=== PATIENT | female | born 1995 | race Caucasian/White ===

== ENCOUNTER 2019-04-30 11:32 | Inpatient (IN) ==
--- NOTE | 2019-04-30 12:13 | Diag Imaging Result Doc PS360 ---
EXAM: CHEST-1 VIEW 04/30/2019 HISTORY: sepsis prot TECHNIQUE: PA chest COMMENT: There are no previous studies. There is no evidence of acute pulmonary disease. The heart size and primary vascularity are within normal limits. IMPRESSION: No acute disease. Electronically signed by Jarod Giang 04/30/2019 12:10 PM
[2019-04-30 12:25] LABS: BILIRUBIN URINE NEGATIVE (NEGATIVE); BLOOD URINE 3+ (NEGATIVE); CLARITY VERY CLOUDY (CLEAR); COLOR YELLOW; GLUCOSE URINE NEGATIVE (NEGATIVE); KETONE URINE 3+(Large) mg/dL (NEGATIVE); LEUKOCYTES URINE 2+ (NEGATIVE); NITRITE URINE POSITIVE (NEGATIVE); PH URINE 6.5; PROTEIN URINE 2+(100 mg/dL) mg/dL (NEGATIVE); SP GRAVITY URINE 1.015; UROBILINOGEN URINE 1 mg/dL
[2019-04-30] MEDS ORDERED: NS 1,000 ML IV ONE ×2 (12:27→15:43)
[2019-04-30 12:36] LABS: INR 1.17; PROTIME 15.5 Seconds (11.0-16.0)
[2019-04-30 12:37] LABS: PTT 33.7 Seconds (22.3-41.8)
[2019-04-30 12:40] LABS: AGAP 15; ALBUMIN 4.7 g/dL (3.5-5.0); ALKALINE PHOSPHATASE 85 U/L (32-104); BUN 7 mg/dL (8-22); CALCIUM 9.6 mg/dL (8.8-10.2); CHLORIDE 103 mmol/L (98-107); CK PROFILE 41 U/L (24-173); COSMO 276; CREATININE 0.8 mg/dL (0.5-0.9); ESTIMATED GFR > 60; GLUCOSE 115 mg/dL (70-104); GOT 14 U/L (10-30); GPT 14 U/L (10-36); POTASSIUM 3.8 mmol/L (3.5-5.1); SODIUM 139 mmol/L (136-145); TCO2 22 mmol/L (25-35); TOTAL PROTEIN 8.2 g/dL (6.3-8.3)
[2019-04-30 12:45] LABS: BASO# 0.06 X1000 (0.0-0.2); BASO% 0.2 % (0.0-0.8); HEMATOCRIT 41.6 % (37.0-47.0); HEMOGLOBIN 13.8 g/dL (12.0-16.0); IMM GRAN# 0.16 X1000 (0.0-0.04); IMM GRAN% 0.4 % (0.0-0.5); LYMPH% 2.2 % (20.5-51.1); MCH 30.7 PG (27-31); MCHC 33.2 g/dL (33-37); MCV 92.4 FL (81-99); MONO# 3.18 X1000 (0.11-0.59); MONO% 8.9 % (1.7-9.3); MPV 11.3 FL (7.4-10.4); NEUT# 31.56 X1000 (1.4-6.5); NEUT% 88.3 % (42.2-75.2); PLT 361 X1000 (130-400); RDW 12.6 % (11.5-14.5); WBC 35.76 X1000 (4.8-10.8)
[2019-04-30 12:49] LABS: URINE BACTERIA 3+ /HFP; URINE EPITHELIAL CELLS <10 /HPF (<10); URINE RBC 20-40 /HPF (<10); URINE SOURCE CLEAN CATCH; URINE WBC TNTC /HPF (<10)
[2019-04-30] MEDS ORDERED: LEVAQUIN 500 MG/D5W 500 MG/100 ML IVPB IV ONE (12:58)
[2019-04-30 13:11] LABS: BE -2.9 mmoll (-3.0-3.0); BLOOD TYPE ARTERIAL; HCO3-(ACT) 22.6 mmoll (20.0-26.0); METHB 1.6 % (0.0-1.5); O2(CT) 16.8 mL/dL (15.0-23.0); PCO2(98.6) 32 mmHg (35-45); PO2(98.6) 91 mmHg (60-100); SAMPLE BLOOD; SAO2 98.7 % (95.0-100.0); THB 12.5 g/dL (11.5-17.4); pH(98.6) 7.42 (7.35-7.45)
[2019-04-30 13:12] LABS: ALLEN TEST NO; MODALITY ROOM AIR
[2019-04-30 13:43] LABS: ANISOCYTOSIS 1+; LYMPHS 3 % (21-51); MONO 9 % (1-9); SEGS 88 % (42-75)
[2019-04-30] MEDS ORDERED: TYLENOL PO ONE (14:33)
--- NOTE | 2019-04-30 15:16 | Diag Imaging Result Doc PS360 ---
EXAM: US RENAL 2 (RETROPER) COMPLETE 04/30/2019 HISTORY: fever TECHNIQUE: Renal ultrasound COMMENT: There is mild caliectasis on the right with a 12 mm sized stone in one of the mid pole calyces. There is also some caliectasis on the left side with an 8 mm stone in the mid collecting system. The urinary bladder is unremarkable. The right kidney is 12.3 x 6.4 x 5.6 cm the left is 11.4 x 5.2 x 6.2 cm. IMPRESSION: Minimal bilateral hydronephrosis and nephrolithiasis. Electronically signed by Jarod Giang 04/30/2019 3:14 PM
[2019-04-30] MEDS ORDERED: TYLENOL PO PRN (15:43)
[2019-04-30] MEDS ORDERED: NS 1,000 ML IV SCH (15:43)
[2019-04-30] MEDS ORDERED: ZOFRAN IV PRN (15:43)
[2019-04-30] MEDS ORDERED: VANCOMYCIN IV PER PHARMACY MISC SCH (16:00)
[2019-04-30] MEDS ORDERED: ZOSYN 3.375 GM in NS 50 ML IV SCH (16:00)
--- NOTE | 2019-04-30 16:36 | PROVIDER DOCUMENTATION ---
This chart was entered by Jamaal Howard Scribe, acting as scribe for Nito Rubalcava MD. HPI-General Adult - General Chief Complaint: Abnormal Lab[s] Stated Complaint: ABD LABS Time Seen by Provider: 04/30/19 12:03 Source: patient Allergies/Adverse Reactions: Patient Allergies Allergy/AdvReac Type Severity Reaction Status Date / Time No Known Allergies Allergy Verified 04/30/19 12:27 Home Medications: Home Medication List Medication Instructions Recorded Confirmed Last Taken Type NK [No Home Medications] 04/30/19 04/30/19 Unknown History - History of Present Illness -Gen Adult Nature of Presenting Problems: 23 y/o F presents to the ED c/o abdominal cramps, low back pain, nausea and vomiting since . Patient reports that she did have a fever last night. Patient reports going to an outpatient clinic this morning and had a WBC of 31k and was told she a UTI. Location of Pain/Injury: reports: abdomen Quality of Pain: reports: cramping Severity: reports: mild Timing: reports: still present Context/Activities at Onset: reports: none Modifying Factors: improves with: nothing Associated Symptoms: reports: fatigue, nausea, vomiting Similar Symptoms Previously?: No Recently seen or treated by another doctor?: Yes Review of Systems - Adult - REVIEW OF SYSTEMS - ADULT Constitutional: reports: chills, fever Eyes: reports: no symptoms reported Ears, Nose, Mouth & Throat: reports: no symptoms reported Cardiovascular: reports: no symptoms reported Respiratory: denies: shortness of breath, wheezing Gastrointestinal: reports: abdominal pain, nausea, vomiting Genitourinary: denies: dysuria, discharge, frequency, flank pain, hematuria Musculoskeletal: reports: back pain Integumentary: denies: rash Neurological: denies: dizziness/vertigo, headache/migraines Psychiatric: reports: no symptoms reported Endocrine: reports: no symptoms reported Hematologic/Lymphatic: reports: no symptoms reported Allergic/Immunologic: reports: no symptoms reported All Other Systems: Reviewed and Negative Past History - Adult - PAST MEDICAL HISTORY-ADULT Review of Records: reports: Nursing Assessment Review, Medications Reviewed Major Childhood Illnesses: reports: denies history Cardiovascular: reports: denies history Respiratory: reports: denies history Gastrointestinal: reports: denies history Obstetrical/Gynecological: reports: denies history Genitourinary: reports: denies history Musculoskeletal: reports: denies history Neurological: reports: denies history Endocrine/Immune: reports: denies history Other Conditions: reports: denies history - PRIOR SURGERIES/PROCEDURES Surgical/Procedure History: reports: reviewed, not pertinent - IMMUNIZATION STATUS Childhood Immunizations: See Nurse Assessment Flu Vaccine: See Nurse Assessment - SOCIAL HISTORY Smoking: denies Substance Use: none/never Physical Exam-General - PHYSICAL EXAM-ADULT Initial Vital Signs Reviewed: Yes - CONSTITUTIONAL General Appearance: alert, no apparent distress - NECK Neck: full range of motion, normal inspection - RESPIRATORY Respiratory: lungs clear, normal breath sounds, no respiratory distress, no accessory muscle use - CARDIOVASCULAR Cardiovascular: normal peripheral pulses, regular rate, rhythm - GASTROINTESTINAL (ABDOMEN) Abdominal Exam: normal bowel sounds, non tender, soft - SKIN Integumentary: normal color, warm/dry - PSYCHIATRIC Psych/Mental Status: normal mood/affect, oriented x 3 Progress - PLAN OF CARE/RESULTS Progress/Plan/Lab Results: Vital Signs - 8 hr 04/30/19 11:34 Temperature 98.9 F Pulse Rate 112 H Respiratory Rate 18 Blood Pressure 119/72 O2 Sat by Pulse Oximetry 96 Bedside Urine ED: Urine Bedside Start: 04/30/19 11:44 Freq: ORDERED Status: Active Protocol: Activity Type Activity Date Activity User E-Sign Co-Sign Detail Recorded Client Recorded Date Recorded By Document 04/30/19 11:48 [id number] 04/30/19 11:48 [id number] 04/30/19 11:48 Point of Care [Bedside Point of Care] -Lot # [id number] - Results Negative -Control Line Visible? Yes -Additional Comment sb Laboratory Results - last 24 hr 04/30/19 04/30/19 04/30/19 11:45 11:45 11:45 WBC 35.76 H RBC 4.50 Hgb 13.8 Hct 41.6 MCV 92.4 MCH 30.7 MCHC 33.2 RDW Std Deviation 12.6 Plt Count 361 MPV 11.3 H Immature Gran % (Auto) 0.4 Neut % (Auto) 88.3 H Lymph % (Auto) 2.2 L [place] % (Auto) 8.9 Eos % (Auto) 0.0 Baso % (Auto) 0.2 Immature Gran # (Auto) 0.16 H Neut # (Auto) 31.56 H Lymph # (Auto) 0.80 L [place] # (Auto) 3.18 H Eos # (Auto) 0.00 Baso # (Auto) 0.06 PT INR PTT (Actin FS) Sodium 139 Potassium 3.8 Chloride 103 Carbon Dioxide 22 L Anion Gap 15 BUN 7 L Creatinine 0.8 Estimated GFR/1.73 m2 > 60 BUN/Creatinine Ratio 9 Glucose 115 H Calculated Osmolality 276 Calcium 9.6 Total Bilirubin 0.90 AST 14 ALT 14 Alkaline Phosphatase 85 Creatine Kinase 41 Troponin T Total Protein 8.2 Albumin 4.7 Globulin 4.0 Albumin/Globulin Ratio 1.0 Urine Source CLEAN CATCH Urine Color YELLOW Urine Clarity VERY CLOUDY A Urine pH 6.5 Ur Specific [place] 1.015 Urine Protein 2+(100 mg/dL) A Urine Ketones 3+(Large) A Urine Blood 3+ A Urine Nitrite POSITIVE A Urine Bilirubin NEGATIVE Urine Urobilinogen 1 Urine Microscopic RBC 20-40 A Urine WBC 2+ A Urine Microscopic WBC TNTC A Ur Epithelial Cells <10 Urine Bacteria 3+ Urine Glucose NEGATIVE 04/30/19 04/30/19 11:45 11:45 WBC RBC Hgb Hct MCV MCH MCHC RDW Std Deviation Plt Count MPV Immature Gran % (Auto) Neut % (Auto) Lymph % (Auto) [place] % (Auto) Eos % (Auto) Baso % (Auto) Immature Gran # (Auto) Neut # (Auto) Lymph # (Auto) [place] # (Auto) Eos # (Auto) Baso # (Auto) PT 15.5 INR 1.17 PTT (Actin FS) 33.7 Sodium Potassium Chloride Carbon Dioxide Anion Gap BUN Creatinine Estimated GFR/1.73 m2 BUN/Creatinine Ratio Glucose Calculated Osmolality Calcium Total Bilirubin AST ALT Alkaline Phosphatase Creatine Kinase Troponin T < 0.010 Total Protein Albumin Globulin Albumin/Globulin Ratio Urine Source Urine Color Urine Clarity Urine pH Ur Specific [place] Urine Protein Urine Ketones Urine Blood Urine Nitrite Urine Bilirubin Urine Urobilinogen Urine Microscopic RBC Urine WBC Urine Microscopic WBC Ur Epithelial Cells Urine Bacteria Urine Glucose Orders Category Date Time Status Cardiac Monitoring DIRECTED Care 04/30/19 11:42 Active ED: Urine Bedside ORDERED Care 04/30/19 11:44 Active IV Insertion ORDERED Care 04/30/19 11:42 Completed Notify MD of + Sepsis Screen NOW Care 04/30/19 11:42 Active Notify Physician As Ordered Care 04/30/19 11:42 Active CHEST-1 VIEW [RAD] Stat Exams 04/30/19 11:42 Completed ABG [RESP] Routine Lab 04/30/19 11:43 Ordered BLOOD CULTURE [BLDCUL] Stat Lab 04/30/19 12:32 Ordered CBC WITH DIFF [HEME] Stat Lab 04/30/19 11:45 Results CK PROFILE [SP CHEM] Stat Lab 04/30/19 11:45 Completed COMPREHENSIVE METABOLIC PANEL [CHEM] Stat Lab 04/30/19 11:45 Completed LACTATE, PLASMA [CHEM] Lab 04/30/19 12:26 Ordered LACTATE, PLASMA [CHEM] Lab 04/30/19 14:45 Uncollected LACTATE, PLASMA [CHEM] Lab 04/30/19 17:45 Uncollected PROTIME WITH INR [COAG] Stat Lab 04/30/19 11:45 Completed PTT [COAG] Stat Lab 04/30/19 11:45 Completed TROPONIN T Stat Lab 04/30/19 11:[address] W/POSS RFLX CULT [URINALYSIS] Stat Lab 04/30/19 11:45 Completed URINE CULTURE [RM] Routine Lab 04/30/19 12:49 Ordered 0.9% Sodium Chloride Inj [Ns] 1,000 ml Med 04/30/19 12:27 Active IV 999 mls/hr Oxygen Device Stat Oth 04/30/19 11:42 Active Result Diagrams: 04/30/19 11:45 04/30/19 11:45 - XRAY 1 XRAY Study: Chest Impression: See EMR Report (EXAM: CHEST-1 VIEW 04/30/2019 HISTORY: sepsis prot TECHNIQUE: PA chest COMMENT: There are no previous studies. There is no evidence of acute pulmonary disease. The heart size and primary vascularity are within normal limits. IMPRESSION: No acute disease. Electronically signed by Jarod Giang 04/30/2019 12:10 PM 04/30/19 1210 Interpreting Physician: Jarod Giang MD Dictated Date/Time: 04/30/19 1209 cc: Nito Rubalcava MD; None,PCP) - ULTRASOUND (By Radiology) 1 US Study: Renal Impression: See EMR Report (EXAM: US RENAL 2 (RETROPER) COMPLETE 04/30/2019 HISTORY: fever TECHNIQUE: Renal ultrasound COMMENT: There is mild caliectasis on the right with a 12 mm sized stone in one of the mid pole calyces. There is also some caliectasis on the left side with an 8 mm stone in the mid collecting system. The urinary bladder is unremarkable. The right kidney is 12.3 x 6.4 x 5.6 cm the left is 11.4 x 5.2 x 6.2 cm. IMPRESSION: Minimal bilateral hydronephrosis and nephrolithiasis. Electronically signed by Jarod Giang 04/30/2019 3:14 PM 04/30/19 1514 Interpreting Physician: Jarod Giang MD Dictated Date/Time: 04/30/19 1512 cc: Nito Rubalcava MD; None,PCP) - CONSULTS/PCP/HOSPITALIST Notification #1 *Consult/PCP/Hospitalist*: Dr Cueva Time Discussed: 15:25 Consult Disposition: Admit Departure - Departure Date of Disposition Decision: 04/30/19 Time of Disposition Decision: 15:34 DIAGNOSIS: Pyelonephritis Disposition: ADMITTED INPATIENT 09 Certified Medical Emergency: Emergent Condition: Stable - Critical Care Note This patient required my direct & personal management of CC.: No Attestation - Physician/ ZIGGY Attestation Patient care was provided by Advanced Practice Provider:: No The physician spent face to face time with patient:: Yes Advanced Practice Provider documentation review:: Supervising physician onsite and consulted in the evaluation and care of this patient. The physician did have a face to face encounter with the patient. This chart was documented by the indicated scribe, (Jamaal Howard Scribe) and accurately reflects the services I performed and decisions made by me, Nito Rubalcava MD, as attested by the provider's signature.
--- NOTE | 2019-04-30 16:55 | HISTORY AND PHYSICAL ---
CHIEF COMPLAINT: Abnormal labs, bilateral flank pain. PRIMARY CARE PROVIDER: None. HISTORY OF PRESENT ILLNESS: Ms. Castorena is a 23-year-old female who carries no past medical history. She stated a couple of days ago she started having bilateral flank pain, episode of vomitus. Went to [facility] this morning and was sent to the ER because of a 31 white count and a urinalysis that was positive for nitrites. Workup in the ED revealed a white count of 35 with negative lactate. Essentially unremarkable CMP. Urinalysis showed too numerous to count WBCs, 2+ WBCs, positive nitrates, 3+ blood. Renal ultrasound was done. That showed minimal bilateral hydronephrosis and nephrolysis with mild caliectasis on the right with a 12 mm size stone in 1 of the midpole calyces, as well as caliectasis on the left side with an 8 mm stone in the mid collecting system. She was initiated on IV Levaquin. She spiked a fever up to 102. We are going to transfer her over to [facility] for a Urology consult and broaden the spectrum of her antibiotics to vancomycin and Zosyn and continue with another fluid bolus with IV fluids at a set rate. Blood pressures have remained stable. She has not been hypotensive. PAST MEDICAL HISTORY: None. PAST SURGICAL HISTORY: None. FAMILY HISTORY: Noncontributory. SOCIAL HISTORY: Occasional alcohol. No tobacco or illicit drug use. HOME MEDICATIONS: None. ALLERGIES: No known drug allergies. PHYSICAL EXAMINATION: VITAL SIGNS: Temperature is 102.1 degrees, heart rate 112, respirations 14, blood pressure 117/64, O2 is 100% on room air. GENERAL: Ms. Catsorena is a pleasant, 23-year-old female who is nontoxic in appearance, sitting up in the stretcher, drinking soda from [employer], in no acute distress. HEENT: Atraumatic, normocephalic. PERRL. NECK: Supple. Trachea midline. CV: S1, S1 appreciated. No murmurs, gallops, rubs noted. RESPIRATORY: Lung sound clear bilaterally. GI: Soft, nontender, nondistended. Positive bowel sounds 4 quadrants. She does have bilateral CVA tenderness. EXTREMITIES: Lower extremity are negative for edema. NEUROLOGIC: No focal deficits noted. DIAGNOSTIC DATA: Per HPI. LABORATORY DATA: White count 35, hemoglobin and hematocrit 13 and 41, platelet count is 361,000. Sodium 139, potassium 3.8, BUN 7, creatinine 0.8, blood glucose is 115. Urinalysis: Too numerous to count WBCs, 2+ WBCs, 20-40 RBC, positive for blood, positive for nitrites, 3+ bacteria. ASSESSMENT AND PLAN: 1. Bilateral hydronephrosis with nephrolithiasis with renal stone. We will broaden the spectrum of her antibiotics to vancomycin and Zosyn. Continue with IV fluids, do another fluid bolus. Continue with Tylenol p.r.n. She has had 2 negative lactates. 2. Fever secondary to #1. 3. Leukocytosis secondary to #1. 4. Further recommendation to follow physician evaluation, laboratory and diagnostic data. Dictated by JUAN Hyde for Onesimo Cueva MD cc: MD Dr. Kacie Vargas
[2019-04-30] MEDS ORDERED: VANCOMYCIN 1,500 MG in NS 250 ML IV ONE (17:00)
[2019-04-30] MEDS: NS 1,000 ML IV SCH (17:30)
[2019-04-30] MEDS ORDERED: VANCOMYCIN 2,000 MG in NS 500 ML IV SCH (18:00)
--- NOTE | 2019-04-30 19:50 | HISTORY AND PHYSICAL ---
ADDENDUM: Patient seen and examined by myself. Full note dictated and discussed with nurse practitioner. Patient presented to the hospital. After having gone to a walk-in clinic, she was told that her white count was 31,000. She notes that she has had some fever and has not felt good. She is actually awake, alert. She is relatively not ill appearing, very pleasant. Her white count is, in fact, 31 to 33. She has a urinary tract infection. Most likely pyelonephritis. She also has kidney stones. We are going to transfer her to [facility], place her on antibiotics, and ask Urology to evaluate. cc: Onesimo Cueva MD
[2019-04-30] MEDS ORDERED: ZOSYN ONE (22:18)
[2019-04-30] MEDS: TYLENOL PO PRN (22:22)
[2019-04-30] MEDS: ZOSYN 3.375 GM in NS 50 ML IV SCH (22:23)
[2019-05-01] MEDS: ZOSYN 3.375 GM in NS 50 ML IV SCH ×4 (06:16→21:51)
[2019-05-01 07:43] LABS: BASO# 0.04 X1000 (0.0-0.2); BASO% 0.2 % (0.0-0.8); HEMATOCRIT 33.3 % (37.0-47.0); HEMOGLOBIN 10.8 g/dL (12.0-16.0); IMM GRAN# 0.07 X1000 (0.0-0.04); IMM GRAN% 0.3 % (0.0-0.5); LYMPH# 0.92 X1000 (1.2-3.4); LYMPH% 4.4 % (20.5-51.1); MCH 30.5 PG (27-31); MCHC 32.4 g/dL (33-37); MCV 94.1 FL (81-99); MONO# 1.91 X1000 (0.11-0.59); MONO% 9.1 % (1.7-9.3); MPV 11.5 FL (7.4-10.4); NEUT# 18.04 X1000 (1.4-6.5); PLT 276 X1000 (130-400); RBC 3.54 XMIL (4.2-5.4); RDW 12.9 % (11.5-14.5); WBC 20.98 X1000 (4.8-10.8)
[2019-05-01 07:52] LABS: AGAP 14; BUN 4 mg/dL (8-22); CALCIUM 7.7 mg/dL (8.8-10.2); CHLORIDE 105 mmol/L (98-107); COSMO 268; CREATININE 0.8 mg/dL (0.5-0.9); ESTIMATED GFR > 60; GLUCOSE 80 mg/dL (70-104); POTASSIUM 3.3 mmol/L (3.5-5.1); SODIUM 136 mmol/L (136-145); TCO2 17 mmol/L (25-35)
--- NOTE | 2019-05-01 07:57 | CONSULTATION ---
DATE OF CONSULTATION: 05/01/2019 CHIEF COMPLAINT: Bilateral flank pain HISTORY OF PRESENT ILLNESS: Ms. Castorena is a 23-year-old female who presented to [facility] complaining of a 2-day history of bilateral flank pain, fevers, and nausea and vomiting. The patient had gone to [facility] earlier yesterday morning and was sent to emergency room [place] [id number]. Her urinalysis was positive for nitrites, blood, leukocytes, and concern for infection. Repeat labs were performed which showed white blood cell count of 35,000 with a normal lactate with creatinine 0.8. An ultrasound was obtained which showed bilateral caliectasis with no obvious hydronephrosis. Stones were seen in both kidneys. A 12 mm stone present in the right kidney and a 8 mm stone present in the left kidney. She was given Levaquin as well as started on Zosyn and vancomycin. The patient had a temperature up to 102 in the emergency room, but has been afebrile since then. She denies any fevers overnight. Her vital signs appeared to be relatively normal. She has been without nausea or vomiting. She denies any history of kidney stones. Denies history of recurrent urinary tract infections. The patient lives in [place] and is here visiting her boyfriend. PAST MEDICAL HISTORY: None. PAST SURGICAL HISTORY: None. FAMILY HISTORY: He denies history of kidney stones. SOCIAL HISTORY: Occasional alcohol. Denies tobacco or illicit drug use. HOME MEDICATIONS: No home medications. ALLERGIES: No drug allergies. PHYSICAL EXAMINATION: Vital Signs: Temperature 98.2, heart rate 96, blood pressure 115/66, saturation 95% on room air. General: No acute distress. Resting comfortably in bed. Alert and oriented x3. Respiratory: Good respiratory effort without audible wheezing or rales. HEENT: Normocephalic, atraumatic. Pupils equal, round, reactive to light. NECK: Trachea midline with masses or asymmetry. Cardiovascular: Low-grade tachycardia. Abdomen: Soft, nontender, nondistended. : No suprapubic tenderness. Mild CVA tenderness bilaterally. Neurologic: Gross motor and sensory intact. Musculoskeletal: Moving all extremities. SKIN: No obvious skin rashes or lesions. LABS: White blood cell count 35.8 yesterday, hemoglobin 13.8, hematocrit 41.6, platelets 361,000. Sodium 139, potassium 3.8, chloride 103, bicarb 22, BUN 7, creatinine 0.8, glucose 115. Urinalysis 3+ protein, positive nitrites, 2+ white blood cells, 3+ bacteria. IMAGING: Renal ultrasound images reviewed which showed bilateral nonobstructing stones. The patient has a 12 mm stone present in the right kidney, as well as 8 mm stone present in the left inter pole. No obvious hydronephrosis is seen. Small amount of pelviectasis is visualized. ASSESSMENT AND PLAN: Ms. Castorena is a 23-year-old who presented to the emergency room yesterday complaining of fevers, nausea and vomiting, with associated back pain. White blood cell count was elevated at 35.8 with a renal ultrasound showing no evidence of hydronephrosis and bilateral nonobstructing stones. The patient was admitted for pyelonephritis. Seems the patient likely has this with nitrite positive urine. She denies any voiding complaints currently. Morning labs have not returned yet. We will continue to monitor. If a.m. labs show improvement in white blood cell count I would continue on IV antibiotics. If the patient has worsening renal function or white blood cell count, may have to consider cross-sectional imaging. We will plan to obtain a KUB later today to assess for stones. The patient's ultrasound did show likely bilateral nonobstructing stones. The patient has not had stones previously. She has not had recurrent infections. I would keep her on broad-spectrum antibiotics and tailor the culture to culture specific treatment of her infection. If has positive blood cultures, may have to discuss with Infectious disease regarding length of therapy. The patient lives in [place] and likely will go back there for further treatment of her stones. We will continue to monitor from a urologic standpoint. Please call with questions or concerns. cc: MD REMEDIOS Sandy
[2019-05-01] MEDS: TYLENOL PO PRN ×3 (08:44→19:50)
[2019-05-01] MEDS: NS 1,000 ML IV SCH ×2 (10:03→10:05)
[2019-05-01] MEDS ORDERED: VANCOMYCIN 1,250 MG in NS 250 ML IV SCH (11:00)
--- NOTE | 2019-05-01 12:22 | Diag Imaging Result Doc PS360 ---
EXAM: KUB ABDOMEN HISTORY: Evaluation for kidney stones TECHNIQUE: Single view COMPARISON: None. FINDINGS: There is stool throughout the colon. No bowel obstruction. No organomegaly. No foreign body. No abnormal abdominal calcifications in the left abdomen. Questionable small calcifications overlying the right kidney. IMPRESSION: Mild constipation. Questionable small right renal stones Electronically signed by Phong Melgar 05/01/2019 12:20 PM
[2019-05-01] MEDS ORDERED: LEVAQUIN 750 MG/D5W 750 MG/150 ML IVPB IV SCH (15:30)
--- NOTE | 2019-05-01 19:34 | PROGRESS NOTE ---
DATE: 05/01/2019 SUBJECTIVE: Patient has no major complaints. OBJECTIVE: Blood pressure is 102/67, heart rate 98, respiratory rate 17, temperature 102.1 degrees, but not she has not had another fever recorded. ASSESSMENT: On micro, she has 2 positive blood cultures for gram-negative rods, and 1 positive urine culture for gram-negative lurdes, presumptively negative bacteremia. She is on Zosyn and seems to be doing okay. Dr. Martin would offer cystoscopy, but she does not want it. She told me that she did not have recurrent infections, but she does, so it will be very important to get her studies. She does have some constipation and there are some small right renal stones, but there is no obstruction, and there is nothing in the bladder. DISPOSITION: I think if she is stable, afebrile, and we have sensitivities, she could go home, but probably do need to make sure she is no longer bacteremic. Will repeat her blood cultures tomorrow. That will be 72 hours potentially on the right if it is susceptible. cc: Kris Christina MD
[2019-05-01] MEDS: COLACE PO SCH (19:50)
[2019-05-02] MEDS ORDERED: MOTRIN PO ONE (00:47)
[2019-05-02] MEDS: NS 1,000 ML IV SCH ×4 (01:01→18:51)
[2019-05-02] MEDS: COLACE PO SCH ×3 (01:43→21:52)
[2019-05-02] MEDS: ZOSYN 3.375 GM in NS 50 ML IV SCH ×4 (06:01→21:52)
[2019-05-02 06:37] LABS: BASO# 0.04 X1000 (0.0-0.2); BASO% 0.4 % (0.0-0.8); HEMOGLOBIN 10.2 g/dL (12.0-16.0); IMM GRAN# 0.08 X1000 (0.0-0.04); IMM GRAN% 0.7 % (0.0-0.5); LYMPH# 1.04 X1000 (1.2-3.4); LYMPH% 9.2 % (20.5-51.1); MCH 30.4 PG (27-31); MCHC 32.9 g/dL (33-37); MCV 92.5 FL (81-99); MONO# 0.84 X1000 (0.11-0.59); MONO% 7.5 % (1.7-9.3); NEUT# 9.26 X1000 (1.4-6.5); NEUT% 82.2 % (42.2-75.2); PLT 285 X1000 (130-400); RBC 3.35 XMIL (4.2-5.4); RDW 12.7 % (11.5-14.5); WBC 11.26 X1000 (4.8-10.8)
[2019-05-02 07:14] LABS: AGAP 13; BUN 4 mg/dL (8-22); CALCIUM 7.5 mg/dL (8.8-10.2); CHLORIDE 110 mmol/L (98-107); COSMO 275; CREATININE 0.7 mg/dL (0.5-0.9); ESTIMATED GFR > 60; GLUCOSE 72 mg/dL (70-104); POTASSIUM 3.1 mmol/L (3.5-5.1); SODIUM 140 mmol/L (136-145); TCO2 17 mmol/L (25-35)
[2019-05-02] MEDS: ZOFRAN IV PRN (08:54)
[2019-05-02] MEDS: TYLENOL PO PRN ×3 (11:36→21:52)
[2019-05-02] MEDS ORDERED: KLOR-CON PO ONE (13:20)
--- NOTE | 2019-05-02 16:09 | PROGRESS NOTE ---
DATE: 05/02/2019 SUBJECTIVE: Patient reports a mild grade temperature tonight. Denies any bilateral flank pain. OBJECTIVE: Vital Signs: Temperature 99.9 degrees, heart rate 86, respiratory rate 18, blood pressure 120/60, O2 saturation 99% on room air. General Examination: This is a 23-year-old, female lying in bed, in no acute distress. Cardiovascular Examination: S1 and S2 heard. No murmurs, gallops, or rubs. Regular rate and rhythm. Respiratory Examination: Clear bilaterally to auscultation. No work of breathing or using accessory muscles. Abdomen: Soft, nontender to palpation. Bowel sounds present. No organomegaly. Extremities: No clubbing, cyanosis, or edema. Peripheral pulses present in both legs. Neurologic Examination: The patient is alert and oriented x3. Moves four extremities. Laboratory Data: White cell count today is 11.26, hemoglobin 10.2. BMP reveals potassium 3.1, calcium 7.5. ASSESSMENT AND PLAN: Bilateral hydronephrosis with ureterolithiasis with renal stone. Apparently, as per urology, what we do see on imaging is pyelonephritis. There is no obstructing stone. The renal ultrasound did not show any hydronephrosis. In any case, the patient has Escherichia coli that is pansensitive so she is on Levaquin. White cell count has improved tremendously from 35,000 to 11,000 today. We will keep this patient one more day. We will continue with current antibiotics; in this case, Levaquin. We will check CBC tomorrow. We will check the new blood culture and if those exams are normal tomorrow, she can be discharged with 2 weeks of oral Levaquin. cc: Walter Pack MD [facility]
[2019-05-03] MEDS ORDERED: NORCO-5 PO ONE (02:30)
[2019-05-03] MEDS: ZOSYN 3.375 GM in NS 50 ML IV SCH ×2 (02:55→09:16)
[2019-05-03] MEDS: ZOFRAN IV PRN ×2 (02:55→09:17)
[2019-05-03] MEDS: NS 1,000 ML IV SCH ×2 (02:58→10:16)
[2019-05-03] MEDS: TYLENOL PO PRN (05:23)
[2019-05-03 07:18] LABS: BASO# 0.05 X1000 (0.0-0.2); BASO% 0.5 % (0.0-0.8); HEMATOCRIT 29.1 % (37.0-47.0); HEMOGLOBIN 9.6 g/dL (12.0-16.0); IMM GRAN# 0.06 X1000 (0.0-0.04); IMM GRAN% 0.6 % (0.0-0.5); LYMPH# 1.05 X1000 (1.2-3.4); LYMPH% 10.2 % (20.5-51.1); MCH 30.1 PG (27-31); MCV 91.2 FL (81-99); MONO# 1.04 X1000 (0.11-0.59); MONO% 10.1 % (1.7-9.3); NEUT# 8.13 X1000 (1.4-6.5); NEUT% 78.6 % (42.2-75.2); PLT 284 X1000 (130-400); RBC 3.19 XMIL (4.2-5.4); RDW 12.9 % (11.5-14.5); WBC 10.33 X1000 (4.8-10.8)
[2019-05-03 07:43] LABS: AGAP 8; BUN 2 mg/dL (8-22); CALCIUM 7.7 mg/dL (8.8-10.2); CHLORIDE 109 mmol/L (98-107); COSMO 269; CREATININE 0.7 mg/dL (0.5-0.9); ESTIMATED GFR > 60; GLUCOSE 84 mg/dL (70-104); POTASSIUM 3.3 mmol/L (3.5-5.1); SODIUM 137 mmol/L (136-145); TCO2 20 mmol/L (25-35)
[2019-05-03] MEDS: COLACE PO SCH (09:19)
[2019-05-03] MEDS ORDERED: KLOR-CON PO ONE (10:03)
[2019-05-03 11:47] VITALS: BP 113/61
--- NOTE | 2019-05-03 21:44 | PROGRESS NOTE ---
DATE: 05/03/2019 SUBJECTIVE: No acute events overnight. The patient states her pain is well controlled. She denies any flank pain. She states that she had some low-grade temperatures overnight, which were registered at 99.7. She denies any tachycardia or nausea or vomiting. The patient remains on p.o. antibiotics and overall is doing well. OBJECTIVE: Vital signs: Temperature 98.1 degrees, heart rate 73, blood pressure 111/65, oxygen 97% on room air. General: No acute distress. Resting comfortably in bed. Alert and oriented x3. Respiratory: Good respiratory effort without audible wheezing or rales. Abdomen: Soft, nontender, nondistended. No palpable masses. : No suprapubic tenderness. No CVA tenderness. Skin: No obvious skin lesions or rashes. LABS: White blood cell count 10.3, hemoglobin 9.6, hematocrit 29.1, platelets 284,000. Sodium 137, potassium 3.3, chloride 109, bicarb 20, BUN 2, creatinine 0.7, glucose 84. Microbiology: Blood and urine cultures growing E coli that is pansensitive with repeat blood cultures negative. ASSESSMENT AND PLAN: Ms. Castorena is a 23-year-old who presents in follow-up regarding pyelonephritis. The patient has been on p.o. antibiotics and remains afebrile. T-max yesterday was 100.5. She denies any flank or abdominal pain this morning. White blood cell count continues to improve at 10.8 today. Creatinine remains stable. I talked with the patient. I recommended at least 2 weeks of antibiotics with Levaquin due to positive blood cultures. I also encouraged her to follow up with her primary care physician or urologist when she returns to [place]. The patient is being planned to be discharged later today. However, if she remains in the area and needed to follow up with Urology, she could call the office to schedule an appointment. I gave her a card as well as our phone number. Educated her that the KUB showed maybe a possible stone within the right kidney, but no large stones were seen. The patient will follow up with Urology outpatient. cc: MD REMEDIOS Sandy
--- NOTE | 2019-05-04 11:37 | DISCHARGE SUMMARY ---
ADMISSION DATE: 04/30/2019 DISCHARGE DATE: 05/03/2019 DISCHARGE DIAGNOSES: 1. Escherichia coli bacteremia improved. 2. Bilateral hydronephrosis with nephrolithiasis improved. 3. Fever resolved. 4. Leukocytosis resolved. CONSULTATIONS: Dr. Armani Martin from Urology. PROCEDURES: Renal ultrasound showed minimal bilateral hydronephrosis and nephrolithiasis. HOSPITAL COURSE: This is a 23-year-old female with past medical history who presented to the emergency department complaining of bilateral flank pain so she was checked in our urgent care, and she was found to have a very elevated white cell count. Here upon ER evaluation, she was found out to have a pyelonephritis with elevated white cell count of 35,000. Patient was admitted to the hospital. She was started on broad-spectrum antibiotics, and we found out that she had an E. Coli pansensitive. At the time of her discharge, her white cell count from 35,000 came back to normal completely. As we mentioned before, we repeated blood cultures yesterday, and those are negative. The patient is going to be discharged with antibiotics for 2 weeks and then she will be discharged. DISCHARGE PHYSICAL EXAMINATION: Vital Signs: Temperature 98.9 degrees, heart rate 60, respiratory 22, blood pressure 113/61. O2 saturation 98% on room air. General: This is a 23- year-old female lying in bed in no acute distress. Cardiovascular: S1, S2 heard. No murmurs, gallops, or rubs. Regular rate and rhythm. Respiratory: Clear bilaterally to auscultation. No work of breathing or using accessory muscles. Abdomen: Soft. Nontender to palpation. Bowel sounds present. No organomegaly. Extremities: No clubbing, cyanosis, or edema. Peripheral pulses present in both legs. Neurological: The patient alert and oriented x3. Moves all 4 extremities. DISCHARGE DISPOSITION: Home to self-care. DISCHARGE MEDICATIONS: Levaquin 750 mg 1 tablet p.o. daily for a couple of weeks. cc: Walter Pack MD
== END 2019-05-03 12:52 | disposition home or self-care (01) | DRG 690 ==
LOC: P.ED 11:32 → SUATTDRO 16:17 → 4N 16:17
PROVIDERS: ATTEND Internal Medicine